=== PATIENT | male | born 1980 ===

== ENCOUNTER 2021-11-05 06:00 | Outpatient (RCR) | payer MEDICARE, MEDICAID, SELFPAY | END 2021-11-21 23:59 | disposition home or self-care (01) | LOC: MOT 06:00 | PROVIDERS: PCP Family Medicine; Referring Provider Family Medicine; Visit Provider Family Medicine | DX: G93.1 Anoxic brain damage, not elsewhere classified (principal); I69.822 Dysarthria following other cerebrovascular disease; R26.89 Other abnormalities of gait and mobility | CPT/HCPCS: 97166 ==

== ENCOUNTER → 2024-08-10 10:48 | Outpatient (BNVA) | payer MEDICARE, MEDICAID, SELFPAY | PROVIDERS: PCP Family Medicine; Referring Provider Family Medicine; Visit Provider Specialist | DX: G82.20 Paraplegia, unspecified (principal); G93.1 Anoxic brain damage, not elsewhere classified | CPT/HCPCS: 99204 ==

== ENCOUNTER → 2024-09-30 11:23 | Outpatient (BNVA) | payer MEDICARE, MEDICAID, SELFPAY | PROVIDERS: PCP Family Medicine; Visit Provider Specialist | DX: G82.20 Paraplegia, unspecified (principal) | CPT/HCPCS: 64644; J0585; J9999 ==

== ENCOUNTER → 2025-01-26 08:13 | Outpatient (BNVA) | payer MEDICARE, MEDICAID, SELFPAY | PROVIDERS: PCP Family Medicine; Visit Provider Specialist | DX: G82.20 Paraplegia, unspecified (principal); G93.1 Anoxic brain damage, not elsewhere classified; R03.0 Elevated blood-pressure reading, without diagnosis of hypertension; G81.11 Spastic hemiplegia affecting right dominant side | CPT/HCPCS: 64644; J0585; J9999 ==

== ENCOUNTER → 2025-04-27 09:23 | Outpatient (BNVA) | payer MEDICARE, MEDICAID, SELFPAY | PROVIDERS: PCP Family Medicine; Visit Provider Specialist | DX: G81.11 Spastic hemiplegia affecting right dominant side (principal); G82.20 Paraplegia, unspecified | CPT/HCPCS: 64644; J0585; J9999 ==